=== PATIENT | male | born 1945 ===

== ENCOUNTER 2019-03-25 08:47 | Emergency (ER) | payer MEDICAID ==
[2019-03-25 09:04] VITALS: BMI 29.0
[2019-03-25 09:05] VITALS: TEMP 99.2
[2019-03-25] MEDS ORDERED: Lidocaine 5% Patch TD STA (09:33)
[2019-03-25] MEDS ORDERED: Lidocaine 5% Patch TD ONE (09:48)
--- NOTE | 2019-03-25 10:29 | RAD ---
Indication: pain, no trauma Right hip with pelvis radiographs, three views Comparison: None available Findings: Mild joint space narrowing bilaterally. No acute displaced fracture or dislocation identified. Sacroiliac joints appear intact. Mild constipation. Soft tissues appear unremarkable. No evidence of radiopaque foreign body. Impression: Mild joint space narrowing bilaterally. No acute displaced fracture or dislocation evident. If high clinical index of suspicion, suggest cross-sectional imaging for further evaluation. Otherwise, if symptoms persist or if there is continued clinical concern, x-ray follow-up in 7-10 days should be considered.
[2019-03-25 10:46] VITALS: BP 129/81; PULSE 76; RESP 20; O2SAT 96
--- NOTE | 2019-03-25 11:03 | C.PDOC ---
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 Patient states that his pain is non-radiating and he denies trauma, headache, nausea, vomiting, fever, and chills. Time Seen by Provider: 03/25/19 09:09 Chief Complaint (Nursing): Back Pain History Per: Patient History/Exam Limitations: no limitations Onset/Duration Of Symptoms: Days (9-10) Current Symptoms Are (Timing): Still Present Quality Of Discomfort: "Pain" Associated Symptoms: None Past Medical History Reviewed: Historical Data, Nursing Documentation, Vital Signs Vital Signs: Last Vital Signs Temp 99.2 F 03/25/19 09:04 Pulse 76 03/25/19 10:45 Resp 20 03/25/19 10:45 BP 129/81 03/25/19 10:45 Pulse Ox 96 03/25/19 10:45 Primary Care Provider: FAMILY PROVIDER,NO - Medical History Other PMH: Cynthia's Syndrome Surgical History: No Surg Hx Family History: States: No Known Family Hx - Social History Hx Alcohol Use: Yes Hx Substance Use: No - Immunization History Hx Tetanus Toxoid Vaccination: No Hx Influenza Vaccination: Yes (2018) Hx Pneumococcal Vaccination: Yes (2017) Review Of Systems Except As Marked, All Systems Reviewed And Found Negative. Constitutional: Negative for: Fever, Chills Respiratory: Negative for: Cough, Shortness of Breath Gastrointestinal: Negative for: Nausea, Vomiting Musculoskeletal: Positive for: Leg Pain (right upper hip) Neurological: Negative for: Headache Physical Exam - Physical Exam Appears: Non-toxic, No Acute Distress Skin: Normal Color, Warm, No Ecchymosis (to the right upper hip) Head: Atraumatic, Normacephalic Eye(s): bilateral: Normal Inspection Neck: Normal, Supple Chest: Symmetrical Extremity: Normal ROM (no pain upon external/internal rotation), Tenderness (to the right upper hip), Other Neurological/Psych: Oriented x3, Normal Speech, Normal Cognition ED Course And Treatment O2 Sat by Pulse Oximetry: 96 (RA) Pulse Ox Interpretation: Normal - Other Rad XR Right Hip X-Ray: Viewed By Me, Read By Radiologist Interpretation: Impression: Mild joint space narrowing bilaterally. No acute displaced fracture or dislocation evident. If high clinical index of suspicion, suggest cross-sectional imaging for further evaluation. Otherwise, if symptoms persist or if there is continued clinical concern, x-ray follow-up in 7-10 days should be considered. Medical Decision Making Medical Decision Making: Plan: Motrin Flexeril 10mg PO Lidoderm Patch Motrin 600mg PO Tylenol 975mg PO XR Right Hip Disposition Counseled Patient/Family Regarding: Studies Performed, Diagnosis, Need For Followup, Rx Given - Disposition Disposition: HOME/ ROUTINE Disposition Time: 11:04 Condition: STABLE Prescriptions: Acetaminophen [Tylenol Extra Strength] 1,000 mg PO TID #18 tablet Aluminum Hydroxide/Magnesium H [Maalox 30 ml] 30 ml PO TID #1 bot Ibuprofen [Motrin] 600 mg PO TID #15 tab Instructions: Osteoarthritis Forms: Gen [facility] - POA Present On Arrival: None - Clinical Impression Clinical Impression: Arthritis, Right hip pain - Scribe Statement The provider has reviewed the documentation as recorded by the Scribe (Kahlil Mckeon) Provider Attestation: All medical record entries made by the Scribe were at my direction and personally dictated by me. I have reviewed the chart and agree that the record accurately reflects my personal performance of the history, physical exam, medical decision making, and the department course for this patient. I have also personally directed, reviewed, and agree with the discharge instructions and disposition.
== END 2019-03-25 11:12 | disposition home or self-care (01) ==
LOC: C.ER 08:47
DX: M16.11 Unilateral primary osteoarthritis, right hip (principal); M25.551 Pain in right hip